=== PATIENT | male | born 1940 | race Hispanic/Latino ===

== ENCOUNTER 2019-07-23 11:31 | Emergency (ER) | payer OTHER ==
[2019-07-23 11:54] LABS: Basophils % 0.5 % (0-1.3); Lymphocytes % 49.2 % (15.3-44.8); MPV 8.6 fL (7.6-11.3); RBC Red Blood Cell Count 4.32 M/uL (4.33-5.43)
[2019-07-23 12:01] LABS: Protime INR 1.14
[2019-07-23 12:10] LABS: BUN Blood Urea Nitrogen 13 mg/dL (7-18); Bicarbonate 24 mmol/L (21-32); Glucose Level 155 mg/dL (74-106); Potassium 3.2 mmol/L (3.5-5.1); Sodium Level 143 mmol/L (136-145); Troponin (Emerg Dept Use Only) < 0.02 ng/mL (0.0-0.045)
--- NOTE | 2019-07-23 12:21 | RAD REPORT ---
EXAM DESCRIPTION: CT - Head Brain Wo Cont - 07/23/2019 12:08 pm CLINICAL HISTORY: Headache COMPARISON: None TECHNIQUE: Computed axial tomography of the head was obtained. IV contrast was not requested. All CT scans are performed using dose optimization technique as appropriate and may include automated exposure control or mA/KV adjustment according to patient size. FINDINGS: Blood is present within the third ventricle, yane cerebellar/brainstem cisterns and subara chnoid spaces. The ventricles are normal in caliber. Fluid within the sinuses/ mastoids is not seen. IMPRESSION: Subarachnoid bleed. 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 Exam was discussed with Dr Nassar in the emergency room 12:10 p.m. July 23, 2019
[2019-07-23] MEDS ORDERED: MORPHINE 4 MG/ML SYR ONE (12:23)
[2019-07-23] MEDS ORDERED: Nicardipine/NS 25 MG/250 ML KIT IV ONE (12:24)
[2019-07-23] MEDS ORDERED: ONDANSETRON 4 MG/2 ML VIAL ONE (12:24)
[2019-07-23 13:32] LABS: Platelet Estimate ADEQ; Urine White Blood Cell Casts OK
[2019-07-23 13:33] LABS: Blood Morphology Comment NOT SEEN (NOT SEEN)
[2019-07-23 13:41] VITALS: TEMP 97.5
[2019-07-23 13:43] VITALS: BP 120/56; O2SAT 96
--- NOTE | 2019-07-25 06:14 | EKG ---
Test Date: 2019-07-23 Test Time: 11:43:20 Machine Tool Builder: ELAINE MEASUREMENT RESULTS: Intervals: Rate: 64 AZ: 150 QRSD: 92 QT: 480 QTc: 495 [place]: P: 40 AZ: 150 QRS: 19 T: 26 INTERPRETIVE STATEMENTS: Sinus rhythm with premature atrial complexes Prolonged QT Abnormal ECG No previous ECG available for comparison Electronically Signed On 07-25-19 06:11:22 CDT by [place]
--- NOTE | 2019-07-30 12:11 | ER ---
Nurse's Notes [facility] Name: Abby Paul Age: 78 yrs Sex: Male : 1940 Arrival Date: 07/23/2019 Time: 11:36 Bed 7 Private MD: Diagnosis: Subarachnoid hemorrhage Presentation: 07/22 11:32 Chief complaint: EMS states: Sudden onset of posterior neck pain and MCKEON, started at jl7 about 1100. Pt was diaphoretic on scene and vomited in route. Pt appears pale and drowsy on arrival. Reports posterior neck pain and MCKEON, rated 9/10, oriented x 4, denies chest pain. Coronavirus screen: Proceed with normal triage. Patient denies a cough. Patient denies shortness of breath or difficulty breathing. Patient denies measured and/or subjective temperature greater than 100.4F prior to today's visit. Patient denies travel on a cruise ship or to a country the [facility] currently lists as an affected area. Patient denies contact with known and/or suspected case of COVID-19. Ebola Screen: No symptoms or risks identified at this time. 11:32 Method Of Arrival: EMS: [facility] 11:32 Initial Sepsis Screen: Does the patient meet any 2 criteria? No. Patient's initial jl7 sepsis screen is negative. Does the patient have a suspected source of infection? No. Patient's initial sepsis screen is negative. Risk Assessment: Do you want to hurt yourself or someone else? Patient reports no desire to harm self or others. Onset of symptoms was July 23, 2019 at 11:00. Care prior to arrival: IV initiated. 20 GA, in the left antecubital area, Glucose check: 142 Oxygen administered. via nasal cannula. Activity prior to arrival: vomiting. 11:32 Acuity: ADA 3 jl7 11:33 Transition of care: patient was not received from another setting of care. 7 12:13 Acuity: ADA 2 jl7 Triage Assessment: 11:35 General: Appears in no apparent distress. uncomfortable, ill, Behavior is cooperative, jl7 appropriate for age, drowsy. Pain: Complains of pain in right base of the skull and right occipital area Pain currently is 9 out of 10 on a pain scale. Neuro: Level of Consciousness is awake, obeys commands, drowsy. Oriented to person, place, time, situation, Mechanic Recovery are equal bilaterally Speech is normal, Facial symmetry appears normal. Cardiovascular: Denies chest pain, Patient's skin is warm and dry. Respiratory: Airway is patent Respiratory effort is even, unlabored, Respiratory pattern is regular, symmetrical, Denies shortness of breath. GI: Patient currently denies nausea. Derm: Skin is dry, Skin is pale, Skin temperature is cool. Historical: - Allergies: 11:53 No Known Allergies; jl7 - Home Meds: 11:53 pantoprazole 40 mg oral TbEC [Active]; cetirizine 10 mg oral tab 1 tab once daily jl7 [Active]; amlodipine 5 mg tab 1 tab once daily [Active]; - PMHx: 11:53 GERD; Hypertension; jl7 - Immunization history:: Adult Immunizations unknown. - Family history:: not pertinent. - Social history:: Smoking status: unknown. - Hospitalizations: : No recent hospitalization is reported. Screenin:57 Abuse screen: Denies threats or abuse. Denies injuries from another. Nutritional jl7 screening: No deficits noted. Tuberculosis screening: No symptoms or risk factors identified. Fall Risk IV access (20 points). Total Grossman Fall Scale indicates No Risk (0-24 pts). Assessment: 12:20 Reassessment: Dr. Nassar at bedside discussing results and POC. Pt verbalized jl7 understanding. 12:25 Reassessment: Dr. Nassar speaking to pt's (Althea) over the phone about need to [facility] for transfer. . 12:44 Reassessment: Pt reports decreased pain, rated 6/10 at this time. Neuro: Level of jl7 Consciousness is awake, obeys commands, Drowsy. Oriented to person, place, time, situation, Speech is normal, Facial symmetry appears normal. 12:50 Reassessment: Spoke to pt's over the phone to notify name of facility pt is being aa5 transferred to, pt's verbalized understanding. Pt's phone number given to [facility]. . 12:59 Reassessment: EMS at bedside to transport pt. jl7 Vital Signs: 11:32 BP 163 / 70; Pulse 63; Resp 19; Pulse Ox 94% ; Pain 9/10; jl7 12:19 BP 149 / 75; Pulse 74; Resp 19 S; Pulse Ox 95% on 2 lpm NC; Pain 9/10; jl7 12:30 BP 126 / 53; Pulse 70; Resp 15 S; Pulse Ox 92% on 2 lpm NC; jl7 12:36 BP 120 / 53; Pulse 74; Resp 15 S; Pulse Ox 92% on 3 lpm NC; jl7 12:40 BP 121 / 55; Pulse 77; Resp 14; Pulse Ox 92% on 3 lpm NC; jl7 12:50 BP 123 / 57; Pulse 76; Resp 19; Pulse Ox 97% on 3 lpm NC; jl7 12:53 Temp 97.5; jl7 12:55 BP 120 / 56; Pulse 78; Resp 17 S; Pulse Ox 96% on 3 lpm NC; jl7 [place] Coma Score: 12:31 Eye Response: spontaneous(4). Verbal Response: oriented(5). Motor Response: obeys rn commands(6). Total: 15. ED Course: 11:35 Arm band placed on right wrist. jl7 11:35 EKG completed in triage. Results shown to MD. jl7 11:36 Patient arrived in ED. rn 11:36 Nhan Nassar MD is Attending Physician. rn 11:44 Kandice Arevalo RN is Primary Nurse. jl7 11:51 Triage completed. jl7 11:56 Patient has correct armband on for positive identification. Placed in gown. Bed in low jl7 position. Call light in reach. Side rails up X2. radiation monitor on. Pulse ox on. NIBP on. 11:56 Initial lab(s) drawn, by me, sent to lab. Maintain EMS IV. Dressing intact. Good blood jl7 return noted. Site clean \T\ dry. Gauge \T\ site: 20 Left AC. 12:09 CT Head Brain wo Cont In Process Unspecified. EDMS 12:17 initiated a transfer with Kailash Dan from the [facility]. eb 12:[address] Giron the neuro brick burner head travel consultant for [facility] with Dr. Cesario engel for patient transfer consultation. 12:45 administrative approval given by Kailash Dan/ patient has been accepted to [facility] Rm [id number]/ Dr. Vandana Giron has accepted the patient in transfer/ report to be called to [phone]. 12:59 No provider procedures requiring assistance completed. Patient transferred, IV remains jl7 in place. intact, No redness/swelling at site. Administered Medications: 12:20 Drug: niCARdipine (25mg/250ml) 5 mg/hr Route: IV; Rate: calculated rate; Site: left jl7 antecubital; 12:42 Follow up: Rate change 2.5 mg/hr jl7 12:20 Drug: morphine 4 mg Route: IVP; Site: left antecubital; aa5 12:42 Follow up: Response: No adverse reaction; Pain is decreased jl7 12:20 Drug: Zofran (Ondansetron) 4 mg Route: IVP; Site: left antecubital; aa5 12:41 Follow up: Response: Nausea is decreased jl7 Outcome: 12:33 ER care complete, transfer ordered by . rn 12:59 Transferred by ground EMS to [facility], Transfer form completed. jl7 X-rays sent w/ patient. 12:59 Condition: stable 12:59 Discharge instructions given to patient, Instructed on the need for transfer, Demonstrated understanding of instructions. 13:25 Patient left the ED. jl7 Signatures: Dispatcher [employer] EDMS Nhan Nassar MD MD rn Calderon, Audri RN RN aa5 Kandice Arevalo RN RN jl7 Renae Sanchez Corrections: (The following items were deleted from the chart) 12:49 11:35 Derm: Skin is pink, warm \T\ dry. jl7 jl7
--- NOTE | 2019-07-30 12:11 | EDPHYS ---
Physician Documentation [facility] Name: Abby Paul Age: 78 yrs Sex: Male : 1940 Arrival Date: 07/23/2019 Time: 11:36 Bed 7 Private MD: ED Physician Nhan Nassar HPI: 07/22 11:38 This 78 yrs old Male presents to ER via Unassigned with complaints of headache.rn 11:38 The patient complains of pain to the right occipital area and right base of the skull. rn The patient describes the headache as aching. Onset: The symptoms/episode began/occurred just prior to arrival. Severity of symptoms: At its worst the pain was moderate, in the emergency department the pain is unchanged. The symptoms are alleviated by nothing. the symptoms are aggravated by nothing. The patient has not experienced similar symptoms in the past. Reports outside, not doing anything strenuous, sudden onset neck and head pain, no trauma or injury, no syncope. No chest pain/sob/abd pain/nausea/vomiting/diarrhea. Reports HTN, takes amlodipine. No focal neurological complaints. EMS states was diaphoretic. . Historical: - Allergies: 11:53 No Known Allergies; jl7 - Home Meds: 11:53 pantoprazole 40 mg oral TbEC [Active]; cetirizine 10 mg oral tab 1 tab once daily jl7 [Active]; amlodipine 5 mg tab 1 tab once daily [Active]; - PMHx: 11:53 GERD; Hypertension; jl7 - Immunization history:: Adult Immunizations unknown. - Family history:: not pertinent. - Social history:: Smoking status: unknown. - Hospitalizations: : No recent hospitalization is reported. ROS: 11:38 Constitutional: Negative for fever, chills, and weight loss, Eyes: Negative for injury, rn pain, redness, and discharge, Neck: + right neck pain Cardiovascular: Negative for chest pain, palpitations, and edema, Respiratory: Negative for shortness of breath, cough, wheezing, and pleuritic chest pain, Abdomen/GI: Negative for abdominal pain, diarrhea, and constipation, Back: Negative for injury and pain, MS/Extremity: Negative for injury and deformity, Skin: Negative for injury, rash, and discoloration, Neuro: Negative for weakness, numbness, tingling, and seizure. Exam: 11:38 Constitutional: This is a well developed, well nourished patient who is awake, alert, rn seems uncomfortable Head/Face: Normocephalic, atraumatic. Eyes: Pupils equal round and reactive to light, extra-ocular motions intact. No nystagmus. ENT: dry MM, no stridor Neck: Trachea midline, no focal tenderness, no neck mass, no crepitus Cardiovascular: Regular rate and rhythm. No pulse deficits. Respiratory: Speaking full sentences. No increased work of breathing, no retractions or nasal flaring. Abdomen/GI: soft, non-tender, no masses Skin: Warm, clammy MS/ Extremity: Pulses equal, no cyanosis. Neurovascular intact. Full, normal range of motion. Equal circumference. Neuro: Awake and alert, GCS 15, oriented to person, place, time, and situation. Cranial nerves II-XII grossly intact. Motor strength 5/5 in all extremities. Sensory grossly intact. Cerebellar exam normal. Vital Signs: 11:32 BP 163 / 70; Pulse 63; Resp 19; Pulse Ox 94% ; Pain 9/10; jl7 12:19 BP 149 / 75; Pulse 74; Resp 19 S; Pulse Ox 95% on 2 lpm NC; Pain 9/10; jl7 12:30 BP 126 / 53; Pulse 70; Resp 15 S; Pulse Ox 92% on 2 lpm NC; jl7 12:36 BP 120 / 53; Pulse 74; Resp 15 S; Pulse Ox 92% on 3 lpm NC; jl7 12:40 BP 121 / 55; Pulse 77; Resp 14; Pulse Ox 92% on 3 lpm NC; jl7 12:50 BP 123 / 57; Pulse 76; Resp 19; Pulse Ox 97% on 3 lpm NC; jl7 12:53 Temp 97.5; jl7 12:55 BP 120 / 56; Pulse 78; Resp 17 S; Pulse Ox 96% on 3 lpm NC; jl7 [place] Coma Score: 12:31 Eye Response: spontaneous(4). Verbal Response: oriented(5). Motor Response: obeys rn commands(6). Total: 15. MDM: 11:36 Patient medically screened. rn 12:31 Differential diagnosis: cerebral vascular accident, hypertensive headache, subarachnoid rn bleed, vasomotor headache. Data reviewed: vital signs, nurses notes, radiologic studies, CT scan, and as a result, I will admit patient. Counseling: I had a detailed discussion with the patient and/or guardian regarding: the historical points, exam findings, and any diagnostic results supporting the discharge/admit diagnosis, lab results, radiology results, the need to transfer to another facility, for higher level of care, [facility] does not immediately have the required specialist. Response to treatment: the patient's symptoms have mildly improved after treatment, and as a result, I will admit patient. ED course: Pt with SAH, cardene started, pain meds and zofran helping, initiated transfer and waiting rn long term care back from [facility], updated patient and . . 07/22 11:36 Order name: Basic Metabolic Panel; Complete Time: 12:15 rn 07/22 11:36 Order name: CBC with Diff rn 07/22 11:36 Order name: Protime (+inr); Complete Time: 12: rn 07/22 11:36 Order name: Ptt, Activated; Complete Time: 12: rn 07/22 11:36 Order name: Troponin (emerg Dept Use Only); Complete Time: 12:15 rn 07/22 11:47 Order name: Magnesium; Complete Time: 12: rn 07/22 11:36 Order name: CT Head Brain wo Cont; Complete Time: 12:24 rn 07/22 11:36 Order name: EKG; Complete Time: 11:38 rn 07/22 12:08 Order name: CREATININE WHOLE BLOOD; Complete Time: 12:15 EDIL 07/22 11:36 Order name: IV Start; Complete Time: rn 07/22 11:36 Order name: Cardiac monitoring; Complete Time: rn 07/22 11:36 Order name: EKG - Nurse/Tech; Complete Time: rn 07/22 11:36 Order name: Labs collected and sent; Complete Time: rn 07/22 11:36 Order name: NPO; Complete Time: rn 07/22 11:36 Order name: O2 Per Protocol; Complete Time: rn 07/22 11:36 Order name: O2 Sat Monitoring; Complete Time: 11:58 rn Administered Medications: 12:20 Drug: niCARdipine (25mg/250ml) 5 mg/hr Route: IV; Rate: calculated rate; Site: left jl7 antecubital; 12:42 Follow up: Rate change 2.5 mg/hr jl7 12:20 Drug: morphine 4 mg Route: IVP; Site: left antecubital; aa5 12:42 Follow up: Response: No adverse reaction; Pain is decreased jl7 12:20 Drug: Zofran (Ondansetron) 4 mg Route: IVP; Site: left antecubital; aa5 12:41 Follow up: Response: Nausea is decreased jl7 Disposition: 07/23/19 12:33 Transfer ordered to [facility]. Diagnosis is Subarachnoid hemorrhage. - Reason for transfer: Higher level of care. - Accepting physician is Dr. Giron. - Condition is Fair. - Problem is new. - Symptoms have improved. Critical care time excluding procedures: 12:32 Critical care time: Bedside Care: 25 minutes, Consultation: 5 minutes. Total time: 30 rn minutes Signatures: Dispatcher [employer] EDMS Nhan Nassar MD MD rn Calderon, Audri, RN RN aa5 Kandice Arevalo RN RN jl7 Corrections: (The following items were deleted from the chart) 12:14 11:38 Head Angio+CT.RAD.BRZ ordered. EDIL EDMS 12:14 11:38 Neck Angio+CT.RAD.BRZ ordered. EDIL EDMS 12:39 12:33 07/23/2019 12:33 Transfer ordered to [facility]. rn Diagnosis is Subarachnoid hemorrhage. Reason for transfer: Higher level of care. Accepting physician is . Condition is Fair. Problem is new. Symptoms have improved. rn 13:25 12:39 07/23/2019 12:33 Transfer ordered to [facility]. jl7 Diagnosis is Subarachnoid hemorrhage. Reason for transfer: Higher level of care. Accepting physician is Dr. Giron. Condition is Fair. Problem is new. Symptoms have improved. rn
== END 2019-07-23 13:25 | disposition short-term general hospital (02) ==
LOC: ER 11:31
DX: I60.9 Nontraumatic subarachnoid hemorrhage, unspecified (principal); I10 Essential (primary) hypertension; K21.9 Gastro-esophageal reflux disease without esophagitis
CPT/HCPCS: 93005; 85025; 80048; 36415; 83735; 85610; 82565; 85730; 84484; 70450; 96375; 96374; 99285; J2405